=== PATIENT | male | born 1985 ===

== ENCOUNTER 2017-08-30 07:06 | Emergency (ER) | payer OTHER ==
[2017-08-30 07:31] VITALS: BP 149/77; PULSE 76; TEMP 98.4; O2SAT 99
--- NOTE | 2017-08-30 07:52 | C.PDOC ---
History Of Present Illness 32 yo male w/o significant PMHx come in for evaluation of possible umbilical infection. Pt sts, " was cleaning it 3 days ago and noted some smell and discharges from it". Pt also reports, intermittent pain around umbilicus for past 3 days. Otherwise, pt denies fever, chills, recent illness, sore throat, neck pain, CP, SOB, dyspnea, abd. pain, V/D, back pain, UTI sx. Pt denies change in appetite or food intolerance. Ambulate to ED for evaluation, not in any apparent distress. Time Seen by Provider: 08/30/17 07:25 Chief Complaint (Nursing): Abdominal Pain History Per: Patient Past Medical History Reviewed: Historical Data, Nursing Documentation, Vital Signs Vital Signs: Last Vital Signs Temp 98.4 F 08/30/17 07:24 Pulse 76 08/30/17 07:24 Resp 16 08/30/17 07:24 BP 149/77 08/30/17 07:24 Pulse Ox 99 08/30/17 07:57 - Medical History PMH: No Chronic Diseases Surgical History: No Surg Hx Family History: States: Unknown Family Hx - Social History Hx Alcohol Use: No Hx Substance Use: No - Immunization History Hx Tetanus Toxoid Vaccination: No Hx Influenza Vaccination: No Hx Pneumococcal Vaccination: No Review Of Systems Except As Marked, All Systems Reviewed And Found Negative. Constitutional: Negative for: Fever, Chills ENT: Negative for: Throat Pain Cardiovascular: Negative for: Chest Pain, Palpitations Respiratory: Negative for: Cough, Shortness of Breath Gastrointestinal: Negative for: Nausea, Vomiting, Abdominal Pain, Diarrhea Genitourinary: Negative for: Dysuria Musculoskeletal: Negative for: Neck Pain, Back Pain Skin: Negative for: Rash Neurological: Negative for: Altered Mental Status Physical Exam - Physical Exam Appears: Well, Non-toxic, No Acute Distress Skin: Normal Color, Warm, Dry, No Rash Eye(s): bilateral: PERRL Nose: No Flaring, No Discharge Oral Mucosa: Moist Throat: No Drooling Neck: Supple Cardiovascular: Rhythm Regular Respiratory: Normal Breath Sounds Gastrointestinal/Abdominal: Soft, No Tenderness, No Organomegaly, No Distention , No Guarding, No Rebound, No Hernia, Other (umbilicus appears normal, no eviden ceof cellulitis, discharges, flactualnce.) Back: No CVA Tenderness Extremity: Normal ROM, No Deformity, No Swelling Neurological/Psych: Oriented x3, Normal Speech ED Course And Treatment O2 Sat by Pulse Oximetry: 99 Pulse Ox Interpretation: Normal - Other Rad Abd xray X-Ray: Interpreted by Me, Viewed By Me Interpretation: (-) air-fluids level Progress Note: On re-eval, pt is afberile, hemodynamicaly stable. NOn-toxic. AMbulatoyr in ED with stable gait. Tolerate PO well in ED. ENT: No acute findings. Neck: SUpple. Lungs: CTA B/L, BS equal B/L. ABd: Benign, (-) guarding, (-) rebound. back: (-) CVA tenderness. Abd xray review and appears normal study. Pt advised and ref. to F/u with PMD, GI In 2-3 days for re-eavl. return to ED if any worsening or new changes. Disposition Counseled Patient/Family Regarding: Diagnosis, Need For Followup - Disposition Referrals: [facility] at [facility] [Outside] Disposition: HOME/ ROUTINE Disposition Time: 07:55 Condition: STABLE Additional Instructions: ENCOURAGE FLUIDS CLEAN NAVEL WITH PEROXIDE NEED FOLLOW UP WITH PMD AT CLINIC IN 2-3 DAYS FOR RE-EVALUATION. RETURN TO ED IF ANY WORSENING OR NEW CHANGES. Instructions: Normal Exam (ED), Abdominal Pain (ED) Forms: [employer] (Ghanaian) Print Language: NEPALESE - Clinical Impression Clinical Impression: Abdominal pain
[2017-08-30 08:19] VITALS: RESP 18
--- NOTE | 2017-08-30 10:35 | RAD ---
HISTORY: Abdominal. COMPARISON: No prior. FINDINGS: BOWEL: The bowel gas pattern is nonspecific. No differential air-fluid levels. No free air. BONES: Normal. OTHER FINDINGS: None. IMPRESSION: Nonobstructive bowel-gas pattern.
== END 2017-08-30 08:20 | disposition home or self-care (01) ==
LOC: C.ER 07:06
DX: R10.9 Unspecified abdominal pain (principal)

== ENCOUNTER 2017-09-06 16:43 | Emergency (ER) | payer SELFPAY ==
[2017-09-06 16:57] VITALS: RESP 18; TEMP 98.3; O2SAT 99
[2017-09-06 17:48] LABS: BASO # 0.1 K/uL (0.0-0.2); BASO % 0.9 % (0.0-2.0); EOS # 0.1 K/uL (0.0-0.7); EOS % 0.7 % (0.0-4.0); HEMOGLOBIN 14.6 g/dL (12.0-18.0); LYMPH # 2.2 K/uL (1.0-4.3); LYMPH % 30.1 % (20.0-40.0); MEAN CELL VOLUME 86.4 fL (80.0-94.0); MEAN CORPUSCULAR HEMOGLOBIN 29.5 pg (27.0-31.0); MEAN CORPUSCULAR HGB CONC 34.2 g/dL (33.0-37.0); MEAN PLATELET VOLUME 8.9 fL (7.2-11.7); MONO # 0.6 K/uL (0.0-0.8); MONO % 8.1 % (0.0-10.0); NEUT # 4.5 K/uL (1.8-7.0); NEUT % 60.2 % (50.0-75.0); RBC 4.96 Mil/uL (4.40-5.90); WHITE BLOOD COUNT 7.5 K/uL (4.8-10.8)
[2017-09-06 18:02] LABS: ALBUMIN 4.5 g/dL (3.5-5.0); ALT/SGPT 30 U/L (21-72); AST/SGOT 24 U/L (17-59); BLOOD UREA NITROGEN 16 mg/dL (9-20); CALCIUM 8.9 mg/dl (8.6-10.4); GFR AFRICAN-AMERICAN > 60; GFR NON-AFRICAN AMERICAN > 60
[2017-09-06 18:04] LABS: ALB/GLOB RATIO 1.1 (1.0-2.1)
--- NOTE | 2017-09-06 18:04 | RAD ---
PROCEDURE: CHEST RADIOGRAPH, 1 VIEW HISTORY: chest pain COMPARISON: Comparison is made with 09/04/2015 FINDINGS: LUNGS: Clear. PLEURA: No pneumothorax or pleural fluid seen. CARDIOVASCULAR: Normal. OSSEOUS STRUCTURES: No significant abnormalities. VISUALIZED UPPER ABDOMEN: Normal. OTHER FINDINGS: None. IMPRESSION: No active disease.
--- NOTE | 2017-09-06 18:48 | C.PDOC ---
History Of Present Illness 32 y/o male hx anxiety presents to the ED c/o intermittent palpations today. The patient states that he has never had a follow up with the his doctor for an evaluation. The patient denies chest pain, SOB, fever, cough, and dizziness. Time Seen by Provider: 09/06/17 17:35 Chief Complaint (Nursing): Palpitations History Per: Patient History/Exam Limitations: no limitations Onset/Duration Of Symptoms: Days Current Symptoms Are (Timing): Still Present Additional History Per: Patient Past Medical History Reviewed: Historical Data, Nursing Documentation, Vital Signs Vital Signs: Last Vital Signs Temp 98.3 F 09/06/17 16:53 Pulse 68 09/06/17 18:51 Resp 18 09/06/17 18:51 BP 115/72 09/06/17 18:51 Pulse Ox 99 09/06/17 18:52 Surgical History: No Surg Hx Family History: States: No Known Family Hx - Social History Hx Alcohol Use: No Hx Substance Use: No - Immunization History Hx Tetanus Toxoid Vaccination: No Hx Influenza Vaccination: No Hx Pneumococcal Vaccination: No Review Of Systems Except As Marked, All Systems Reviewed And Found Negative. Constitutional: Negative for: Fever, Chills Cardiovascular: Positive for: Palpitations. Negative for: Chest Pain Respiratory: Negative for: Cough, Shortness of Breath Gastrointestinal: Negative for: Nausea, Vomiting Skin: Negative for: Rash Physical Exam - Physical Exam Appears: Non-toxic, No Acute Distress Skin: Warm, Dry Head: Atraumatic, Normacephalic Eye(s): bilateral: Normal Inspection Oral Mucosa: Moist Neck: Supple Chest: Symmetrical Cardiovascular: Rhythm Regular Respiratory: Normal Breath Sounds, No Rales, No Rhonchi, No Wheezing Gastrointestinal/Abdominal: Soft, No Tenderness, No Guarding, No Rebound Back: Normal Inspection Extremity: Capillary Refill (2<sec.) Neurological/Psych: Oriented x3, Normal Speech, Normal Cognition Gait: Steady ED Course And Treatment - Laboratory Results Result Diagrams: 09/06/17 17:45 09/06/17 17:45 ECG Rhythm: Sinus Rhythm (62 bpm with early repolarization) O2 Sat by Pulse Oximetry: 99 (RA) Medical Decision Making Medical Decision Making: IMPRESSION: No active disease. Disposition - Disposition Referrals: Felicia Gamboa, [Non-Staff] - Disposition: HOME/ ROUTINE Disposition Time: 18:15 Condition: GOOD Additional Instructions: Thank you for letting us take care of you today. The emergency medical care you received today was directed at your acute symptoms. If you were prescribed any medication, please fill it and take as directed. It may take several days for your symptoms to resolve. Return to the Emergency Department if your symptoms worsen, do not improve, or if you have any other problems. Please contact your doctor or call one of the physicians/clinics you have been referred to that are listed on the Patient Visit Information form that is included in your discharge packet. Bring any paperwork you were given at discharge with you along with any medications you are taking to your follow up visit. Our treatment cannot replace ongoing medical care by a primary care provider (PCP) outside of the emergency department. Thank you for allowing the [facility] team to be part of your care today. Follow up with your doctor in 2-3 days for re-evaluation and further management. Instructions: Palpitations (ED) Forms: [employer] ([place]) - Clinical Impression Clinical Impression: Palpitations - Scribe Statement The provider has reviewed the documentation as recorded by the Scribe Jami Self
[2017-09-06 18:51] VITALS: BP 115/72; PULSE 68
--- NOTE | 2017-09-09 12:46 | CARD ---
APPROVED REPORT EKG Measurement Heart [id number] CT 130P18 [id number] <Conclusion> Normal sinus rhythm ST elevation, probably due to early repolarization Borderline ECG
== END 2017-09-06 19:09 | disposition home or self-care (01) ==
LOC: C.ER 16:43
DX: R00.2 Palpitations (principal)

== ENCOUNTER 2017-11-04 18:11 | Emergency (ER) | payer OTHER ==
[2017-11-04] MEDS ORDERED: Apap-Butalbital-Caffeine 325-50-40mg Tab PO STA (19:05)
[2017-11-04] MEDS ORDERED: Apap-Butalbital-Caffeine 325-50-40mg Tab ONE (19:14)
--- NOTE | 2017-11-04 19:57 | C.PDOC ---
History Of Present Illness 32 y/o male presents to ED with complaints of intermittent left sided headache for 1 week. Patient states pain radiates from back to front and has been taking Tylenol with minimal relief. Patient denies fever, dizziness, vision changes, photophobia, nausea or vomiting. Time Seen by Provider: 11/04/17 18:57 Chief Complaint (Nursing): Headache History Per: Patient History/Exam Limitations: no limitations Onset/Duration Of Symptoms: Days Current Symptoms Are (Timing): Still Present Past Medical History Reviewed: Historical Data, Nursing Documentation, Vital Signs Vital Signs: Last Vital Signs Temp 97.7 F 11/04/17 20:35 Pulse 68 11/04/17 20:35 Resp 18 11/04/17 20:35 BP 128/72 11/04/17 20:35 Pulse Ox 100 11/04/17 20:49 - Medical History PMH: No Chronic Diseases Surgical History: No Surg Hx Family History: States: No Known Family Hx - Social History Hx Alcohol Use: No Hx Substance Use: No - Immunization History Hx Tetanus Toxoid Vaccination: No Hx Influenza Vaccination: No Hx Pneumococcal Vaccination: No Review Of Systems Constitutional: Negative for: Fever, Chills Eyes: Negative for: Vision Change Gastrointestinal: Negative for: Nausea, Vomiting Skin: Negative for: Rash Neurological: Positive for: Headache. Negative for: Weakness, Numbness Physical Exam - Physical Exam Appears: Non-toxic, No Acute Distress Skin: Warm, Dry, No Rash Head: Atraumatic, Normacephalic Eye(s): bilateral: Normal Inspection Ear(s): Bilateral: Normal Oral Mucosa: Moist Neck: Normal ROM, Supple Cardiovascular: Rhythm Regular, No Murmur Respiratory: Normal Breath Sounds, No Rales, No Rhonchi, No Stridor, No Wheezing Gastrointestinal/Abdominal: Soft, No Tenderness, No Guarding, No Rebound Extremity: Bilateral: Atraumatic Neurological/Psych: Oriented x3, Normal Speech Gait: Steady ED Course And Treatment O2 Sat by Pulse Oximetry: 100 (RA) Pulse Ox Interpretation: Normal - CT Scan/US CT head Other Rad Studies (CT/US): Read By Radiologist, Radiology Report Reviewed CT/US Interpretation: EXAM: CT Head Without Intravenous Contrast. EXAM DATE/ TIME: 11/04/2017 7:04 PM. CLINICAL HISTORY: 32 years old, male; Pain; Headache ; Headache not specified; Additional info: Headache for 1 week,. left sided. TECHNIQUE: Axial computed tomography images of the head/brain without intravenous contrast. All CT scans at. this facility use one or more dose reduction techniques, viz.: automated exposure control; ma/kV. adjustment per patient size (including targeted exams where dose is matched to indication; i.e. head);. or iterative reconstruction technique. Coronal and sagittal reformatted images were created and reviewed. COMPARISON: No relevant prior studies available. FINDINGS: BRAIN: No significant abnormality identified. No acute hemorrhage seen within the brain. No acute. extra-axial fluid collections visualized. No evidence of significant mass effect within the brain. Normal aguayo-white matter differentiation. VENTRICLES: No evidence of significant hydrocephalus. BONES/JOINTS: No acute fractures or other acute bony abnormality noted. SOFT TISSUES: No acute abnormality of the visualized soft tissues is seen. SINUSES: Visualized paranasal sinuses appear clear. MASTOID AIR CELLS: Mastoid air cells appear clear. IMPRESSION: - No acute findings seen within the brain. - See above for remaining findings. Medical Decision Making Medical Decision Making: Patient with headache for one week and intermittent. He remained afebrile alert and oriented in no distress. Neck supple and no neuro deficits. CT head reviewed with no intracranial abnormality. Patient stable for discharge. Rx given. Patient advised to follow up with PCP. Disposition Counseled Patient/Family Regarding: Diagnosis, Need For Followup, Rx Given - Disposition Disposition: HOME/ ROUTINE Disposition Time: 20:34 Condition: STABLE Additional Instructions: Jackson TC de lit fue normal Rae medicamentos para el dolor es necesario Reese un seguimiento con jackson mdico o clnica Your CT of head was normal Take pain medicine is needed Follow up with your doctor or clinic Prescriptions: Acetaminophen/Butalbital/Caf [Fioricet] 1 tab PO TID PRN #20 tab PRN Reason: Headache Instructions: Tension Headache Forms: [employer] (Chinese) Print Language: ARGENTINE - POA Present On Arrival: None - Clinical Impression Clinical Impression: Headache - PA / DYE CAN OPERATOR / Resident Statement MD/DO has reviewed & agrees with the documentation as recorded. - Scribe Statement The provider has reviewed the documentation as recorded by the Scribe Gretel Cole All medical record entries made by the Scribe were at my direction and personally dictated by me. I have reviewed the chart and agree that the record accurately reflects my personal performance of the history, physical exam, medical decision making, and the department course for this patient. I have also personally directed, reviewed, and agree with the discharge instructions and disposition.
--- NOTE | 2017-11-04 20:20 | CT ---
EXAM: CT Head Without Intravenous Contrast EXAM DATE/TIME: 11/04/2017 7:04 PM CLINICAL HISTORY: 32 years old, male; Pain; Headache; Headache not specified; Additional info: Headache for 1 week, left sided TECHNIQUE: Axial computed tomography images of the head/brain without intravenous contrast. All CT scans at this facility use one or more dose reduction techniques, viz.: automated exposure control; ma/kV adjustment per patient size (including targeted exams where dose is matched to indication; i.e. head); or iterative reconstruction technique. Coronal and sagittal reformatted images were created and reviewed. COMPARISON: No relevant prior studies available. FINDINGS: BRAIN: No significant abnormality identified. No acute hemorrhage seen within the brain. No acute extra-axial fluid collections visualized. No evidence of significant mass effect within the brain. Normal aguayo-white matter differentiation. VENTRICLES: No evidence of significant hydrocephalus. BONES/JOINTS: No acute fractures or other acute bony abnormality noted. SOFT TISSUES: No acute abnormality of the visualized soft tissues is seen. SINUSES: Visualized paranasal sinuses appear clear. MASTOID AIR CELLS: Mastoid air cells appear clear. IMPRESSION: - No acute findings seen within the brain. - See above for remaining findings.
[2017-11-04 20:36] VITALS: BP 128/72; PULSE 68; RESP 18; TEMP 97.7
[2017-11-04 20:49] VITALS: O2SAT 100
== END 2017-11-04 20:39 | disposition home or self-care (01) ==
LOC: C.ER 18:11
DX: R51 Headache (principal)

== ENCOUNTER 2017-11-21 20:55 | Emergency (ER) | payer OTHER ==
[2017-11-21 21:13] VITALS: PULSE 90
--- NOTE | 2017-11-21 22:21 | C.PDOC ---
History Of Present Illness 32 year old male presents to the ER with a complaint of subjective fever, headache, and nausea since last night, now with body aches and back pain. Denies cough, chest pain, SOB, vomiting, and diarrhea. Time Seen by Provider: 11/21/17 21:15 Chief Complaint (Nursing): Fever History Per: Patient History/Exam Limitations: no limitations Onset/Duration Of Symptoms: Hrs Current Symptoms Are (Timing): Still Present Location Of Pain: None Sick Contacts (Context): None Associated Symptoms: Fever (Subjective), Nausea, Other ((+) Headache (-) Chest pain, SOB). denies: Cough, Vomiting, Diarrhea Ear Symptoms: Bilateral: None Recent travel outside of the [place]: No Past Medical History Reviewed: Historical Data, Nursing Documentation, Vital Signs Vital Signs: Last Vital Signs Temp 98.6 F 11/21/17 22:36 Pulse 90 11/21/17 22:36 Resp 16 11/21/17 22:36 BP 123/75 11/21/17 22:36 Pulse Ox 99 11/21/17 22:36 Family History: States: Unknown Family Hx - Social History Hx Alcohol Use: No Hx Substance Use: No - Immunization History Hx Tetanus Toxoid Vaccination: No Hx Influenza Vaccination: No Hx Pneumococcal Vaccination: No Review Of Systems Except As Marked, All Systems Reviewed And Found Negative. Constitutional: Positive for: Fever (Subjective) Cardiovascular: Negative for: Chest Pain Respiratory: Negative for: Cough, Shortness of Breath Gastrointestinal: Positive for: Nausea. Negative for: Vomiting, Diarrhea Neurological: Positive for: Headache Physical Exam - Physical Exam Appears: Well, Non-toxic, No Acute Distress Skin: Normal Color, Warm, Dry, No Rash Head: Atraumatic, Normacephalic Eye(s): bilateral: Normal Inspection Ear(s): Bilateral: Normal Nose: Normal Oral Mucosa: Moist Throat: Normal, No Erythema, No Exudate Neck: Normal, Supple Chest: Symmetrical, No Tenderness Cardiovascular: Rhythm Regular, No Friction Rub, No Murmur Respiratory: Normal Breath Sounds, No Rales, No Rhonchi, No Wheezing Gastrointestinal/Abdominal: Soft, No Tenderness Back: Normal Inspection, No CVA Tenderness Extremity: Normal ROM, No Tenderness, No Swelling Neurological/Psych: Oriented x3, Normal Speech, Normal Motor, Normal Sensation Gait: Steady ED Course And Treatment O2 Sat by Pulse Oximetry: 97 (Room air) Pulse Ox Interpretation: Normal Medical Decision Making Medical Decision Making: Motrin administered. Patient is resting comfortably in the ER in no acute distress, afebrile, vitals are stable; will discharge home with instructions to follow up with PMD. On re-exam the patient reports improvement of symptoms. Lungs are CTA, heart is RRR, abdomen is soft, non-tender and tolerating PO well. Ambulatory in the ED with steady gait. Follow up with the medical doctor within 1-2 days. Return if worsened. Disposition - Disposition Referrals: [facility] at [facility] [Outside] Disposition: HOME/ ROUTINE Disposition Time: 22:00 Condition: GOOD Additional Instructions: Follow up with the medical doctor within 1-2 days. Return if worsened. Prescriptions: Ibuprofen [Motrin] 600 mg PO TID #21 tab predniSONE [Prednisone] 20 mg PO BID #10 tab Instructions: Viral Syndrome (DC) Forms: [employer] (Egyptian), Work Excuse - Clinical Impression Clinical Impression: Influenza-like illness, Viral syndrome - PA / SIEVE MAKER / Resident Statement MD/DO has reviewed & agrees with the documentation as recorded. - Scribe Statement The provider has reviewed the documentation as recorded by the Scribe Jonatan Jim All medical record entries made by the Merari were at my direction and personally dictated by me. I have reviewed the chart and agree that the record accurately reflects my personal performance of the history, physical exam, medical decision making, and the department course for this patient. I have also personally directed, reviewed, and agree with the discharge instructions and disposition.
[2017-11-21 22:37] VITALS: BP 123/75; RESP 16; TEMP 98.6
[2017-11-21 23:03] VITALS: O2SAT 97
== END 2017-11-21 22:39 | disposition home or self-care (01) ==
LOC: C.ER 20:55
DX: J11.1 Influenza due to unidentified influenza virus with other respiratory manifestations (principal); B34.9 Viral infection, unspecified

== ENCOUNTER 2018-11-21 17:47 | Emergency (ER) | payer SELFPAY ==
[2018-11-21 17:52] VITALS: BMI 28.1
[2018-11-21 17:58] VITALS: TEMP 98.6; O2SAT 98
--- NOTE | 2018-11-21 18:13 | C.PDOC ---
History Of Present Illness 33 y/o male comes in to ED complaining of lower perineum pain intermittently for the past year. He reports that the pain would come and go and he hasnt experienced the pain in the past month; however he grew concerned when it was happening consecutively for the past 4 days, and today has been constant with pain that is 6/10. Patient denies use of pain medications. Also reports increased urinary frequency but denies dysuria or back pain. Also denies fever, chills, nausea, vomiting, chest pain, abdominal pain, rash, or penile discharge. Time Seen by Provider: 11/21/18 18:01 Chief Complaint (Nursing): Headache History Per: Patient History/Exam Limitations: no limitations Onset/Duration Of Symptoms: Days Current Symptoms Are (Timing): Still Present Past Medical History Reviewed: Historical Data, Nursing Documentation, Vital Signs Vital Signs: Last Vital Signs Temp 98.6 F 11/21/18 17:52 Pulse 69 11/21/18 17:52 Resp 18 11/21/18 17:52 BP 123/76 11/21/18 17:52 Pulse Ox 98 11/21/18 17:52 Family History: States: No Known Family Hx - Social History Hx Alcohol Use: No Hx Substance Use: No - Immunization History Hx Tetanus Toxoid Vaccination: No Hx Influenza Vaccination: No Hx Pneumococcal Vaccination: No Review Of Systems Constitutional: Negative for: Fever, Chills Cardiovascular: Negative for: Chest Pain Gastrointestinal: Negative for: Nausea, Vomiting, Abdominal Pain Genitourinary: Positive for: Other (lower perineum pain). Negative for: Dysuria, Frequency, Penile Discharge Musculoskeletal: Negative for: Back Pain Skin: Negative for: Rash Physical Exam - Physical Exam Appears: Non-toxic, No Acute Distress Skin: Warm, Dry, No Rash Head: Atraumatic, Normacephalic Eye(s): bilateral: Normal Inspection Oral Mucosa: Moist Neck: Supple Chest: Symmetrical Cardiovascular: Rhythm Regular, No Murmur Respiratory: Normal Breath Sounds, No Rales, No Rhonchi, No Wheezing Gastrointestinal/Abdominal: Soft, No Tenderness Rectal: Normal Exam, No Mass, No Tenderness Back: No CVA Tenderness Male Genital: Other (mild tender to palpation of perineum area) Pulses: Left Femoral: Normal, Right Femoral: Normal Neurological/Psych: Oriented x3, Normal Speech ED Course And Treatment O2 Sat by Pulse Oximetry: 98 (RA) Pulse Ox Interpretation: Normal Medical Decision Making Medical Decision Making: Plan: --Tylenol --UA -unremarkable D/W results of UA. Recommend following up in Clinic for further work-up Patient verbalized understanding and is in agreement with plan Disposition Counseled Patient/Family Regarding: Studies Performed, Diagnosis, Need For Followup, Rx Given - Disposition Referrals: [facility] at [facility] [Outside] Disposition: HOME/ ROUTINE Disposition Time: 20:06 Condition: IMPROVED Additional Instructions: Take Tylenol as needed for pain every 8 hours Follow up in Clinic for further work-up of headache and perineum pain Return to ED if symptoms worsen Prescriptions: Acetaminophen [Tylenol] 650 mg PO Q8 #30 capsule Instructions: Headache, Adult (DC) Forms: [employer] (Arabic) - Clinical Impression Clinical Impression: Headache, Perineum pain, male - PA / TRANSLITERATOR / Resident Statement MD/DO has reviewed & agrees with the documentation as recorded. - Scribe Statement The provider has reviewed the documentation as recorded by the Scribe Candis Smith All medical record entries made by the Scribe were at my direction and personally dictated by me. I have reviewed the chart and agree that the record accurately reflects my personal performance of the history, physical exam, medical decision making, and the department course for this patient. I have also personally directed, reviewed, and agree with the discharge instructions and disposition.
[2018-11-21 19:15] LABS: URINE AMORPHOUS SEDIMENT RARE /ul (<OCC); URINE BACTERIA RARE (<OCC); URINE BILIRUBIN NEGATIVE (NEGATIVE); URINE BLOOD NEGATIVE (NEGATIVE); URINE CLARITY Hazy (Clear); URINE COLOR Yellow (YELLOW); URINE GLUCOSE (UA) NORMAL (Normal); URINE LEUKOCYTE ESTERASE NEG Leu/uL (Negative); URINE PROTEIN NEGATIVE (NEGATIVE)
[2018-11-21 20:21] VITALS: BP 138/84; PULSE 79; RESP 16
== END 2018-11-21 20:19 | disposition home or self-care (01) ==
LOC: C.ER 17:47
DX: R51 Headache (principal); R10.2 Pelvic and perineal pain